=== PATIENT | female | born 1970 | race Caucasian/White ===

== ENCOUNTER 2016-11-18 08:06 | Emergency (ER) | payer OTHER ==
--- NOTE | ~2016-11-18 | CR63 ---
[facility] A Service of [facility] RADIOLOGY TEXT RESULTS PATIENT: EZIO MCCURDY LOCATION: SED : 66 UNIT #: [id number] AGE: [address]: Adrian Mcfadden MD SEX: F ORDER DR: [id number] [place] [id number] E MR#: [id number] Acc #: [id number] NAME: EZIO MCCURDY : 1970 SEX: F STUDY DATE/TIME: 11/18/2016 8:21 UNIT: SED ROOM: STUDY DESCRIPTION: CR Chest 2 View Attending Physician: Adrian Mcfadden M.D. Ordering Physician: Adrian Mcfadden M.D. Primary Care Physician: Nishant Ambrosio M.D. MEDICAL IMAGING REPORT This report is preliminary unless electronic signature is present. EXAM PA and lateral chest HISTORY Cough for 2 days. COMPARISON 02/20/2008 FINDINGS PA and lateral examination of the chest upright shows a good expansion of the parenchyma with a normal distribution of the pulmonary vascularity. There is no indication of congestion, effusion, infiltrate, tumor, or nodular density. The pleural reflections and diaphragmatic contours are normal. The cardiac silhouette and mediastinal anatomy is within normal limits. IMPRESSION Normal chest. Dictated by... Christian Feldman M.D. THIS IS AN ELECTRONICALLY VERIFIED REPORT Christian Feldman M.D. at 11/18/2016 1:53 PM CRISTY/florian TD: 11/18/2016 11:29 JOB #: [id number] [facility] A Service [facility] RADIOLOGY TEXT RESULTS PATIENT: EZIO MCCURDY LOCATION: SED : 66 UNIT #: [id number] AGE: [address]: Adrian Mcfadden MD SEX: F ORDER DR: MEDICAL IMAGING REPORT Page 1 of 1
[~2016-11-18 08:06] MED LIST: CLARITIN10 MG PO; MEDROL PO; NABUMETONE PO; ULTRAM
== END 2016-11-18 10:03 | disposition home or self-care (01) ==
LOC: SED 08:06
DX: J40 Bronchitis, not specified as acute or chronic (principal); F17.210 Nicotine dependence, cigarettes, uncomplicated; Z88.6 Allergy status to analgesic agent
CPT/HCPCS: 71020; 94640; 99283